=== PATIENT | female | born 1950 | race Caucasian/White ===

== ENCOUNTER 2022-11-27 23:50 | Emergency (ER) | payer MEDICARE, OTHER ==
[2022-11-28] MEDS ORDERED: Morphine 4 MG/ML VIAL IVPUSH ONE (00:11)
[2022-11-28] MEDS ORDERED: Sodium Chloride 0.9% 1,000 ML IV ONE (00:11)
[2022-11-28] MEDS ORDERED: Sodium Chloride 0.9% 10 ML Syringe FLUSH PRN (00:12)
[2022-11-28 00:37] LABS: ESTIMATED GFR 31 mL/min (>60)
[2022-11-28] MEDS ORDERED: Iopamidol 755 Mg/ML 75 ML Bottle IV ONE (07:10)
[2022-11-28] MEDS ORDERED: Iopamidol 755 Mg/ML 100 ML Bottle IV ONE (07:12)
== END 2022-11-28 04:11 | disposition home or self-care (01) ==
LOC: FB.ED 23:50
DX: K52.9 Noninfective gastroenteritis and colitis, unspecified (principal); Z88.5 Allergy status to narcotic agent; Z88.6 Allergy status to analgesic agent
CPT/HCPCS: 36415; 74177; 80053; 83605; 83690; 84484; 85025; 96360; 99283; 99285-25; J7030; Q9967